=== PATIENT | male | born 1950 | race Caucasian/White ===

== ENCOUNTER 2017-03-12 13:41 | Inpatient (IN) | payer OTHER ==
[2017-03-12 14:17] LABS: EOSINOPHIL (%) 0 % (0-5); HEMATOCRIT 46.6 % (38.0-50.0); IMMATURE GRANULOCYTE (%) 0.4 % (0.0-0.7); IMMATURE GRANULOCYTE COUNT 0.1 K/uL; INSTRUMENT ABS NEUTROPHIL CT 13.9 K/uL; LYMPHOCYTE COUNT 0.8 K/uL (1.0-2.8); MCHC 34.3 G/DL (30.0-36.0); MCV 93.2 FL (86-99); MEAN PLAT.VOLUME 11.9 uM^3 (9.0-12.4); MONOCYTE (%) 3.5 % (3-12); MONOCYTE COUNT 0.5 K/uL (0-0.8); NEUTROPHIL COUNT 13.9 K/uL (1.8-6.4); PLATELET COUNT 200 K/uL (156-360); RBC DIS.WIDTH-CV 12.9 % (11.8-14.6); RBC DIS.WIDTH-SD 43.9 % (39-53); WHITE BLOOD COUNT 15.3 K/uL (4.1-10.2)
[2017-03-12 14:31] LABS: INTER. NORMALIZED RATIO 1.1; PROTHROMBIN TIME 12.2 SEC (10.2-12.9)
[2017-03-12 14:35] LABS: AMYLASE 21 IU/L (1-118); ANION GAP 12 MEQ/L (2-14); CHLORIDE 106 MEQ/L (99-109); POTASSIUM 4.3 MEQ/L (3.7-5.4); SAMPLE HEMOLYSIS CHECK 0; SAMPLE ICTERIC CHECK 0; SAMPLE LIPEMIA CHECK 0; SODIUM 138 MEQ/L (136-147)
[2017-03-12 14:42] LABS: GFR ESTIMATE (CALCULATED) > 59 mL/min/ (58.99-99999); GLUCOSE 211 mg/dL (70-99); LIPASE 3 U/L (1.0-51.0); SERUM ETHYL ALCOHOL < 10 mg/dL; UREA NITROGEN (BUN) 15 mg/dL (9-23)
[2017-03-12 14:49] LABS: TROP-I INTERPRETATION POSITIVE; TROPONIN-I 2.74 ng/mL (0.0-0.30)
== END 2017-03-12 15:39 | disposition short-term general hospital (02) | DRG 271 ==
LOC: EME 13:41 → ENRESERV 13:57 → CANRESERV 14:08 → CATH 14:36 → 2SOUTH 14:43
PROVIDERS: Emergency Medicine
DX: I21.09 ST elevation (STEMI) myocardial infarction involving other coronary artery of anterior wall (principal); I25.10 Atherosclerotic heart disease of native coronary artery without angina pectoris; I25.5 Ischemic cardiomyopathy; I45.10 Unspecified right bundle-branch block; I47.1 Supraventricular tachycardia; K21.9 Gastro-esophageal reflux disease without esophagitis; K44.9 Diaphragmatic hernia without obstruction or gangrene; R42 Dizziness and giddiness
CPT/HCPCS: 80048; 80061; 81003; 82150; 82550; 82550 91; 82553; 83036; 83690; 84484; 85025; 85025 91; 85347; 85610; 85730; 86850; 86900; 86901; 93005; C1725; C1769; C1887; C1894; G0480; J0461; J1644; J2250; J2405; J3010; J3246